=== PATIENT | male | born 1985 | race Caucasian/White ===

== ENCOUNTER 2019-06-29 13:47 | Emergency (ER) | payer MEDICAID ==
[2019-06-29] MEDS ORDERED: Bacitracin Oint 1 GM U/D Packet TOP ONE (14:15)
[2019-06-29] MEDS ORDERED: Lidocaine 1% 20 ML MDV INJECT ONE (14:15)
--- NOTE | 2019-06-29 14:16 | EDM.PDOC ---
ED HPI GENERAL MEDICAL PROBLEM - General Chief Complaint: Laceration Stated Complaint: LEFT HAND BETWEEN FINGERS LACERATION Time Seen by Provider: 06/29/19 14:16 Source of Information: Reports: Patient History Limitations: Reports: No Limitations - History of Present Illness INITIAL COMMENTS - FREE TEXT/NARRATIVE: pt was doing mechanical work. He ended up with a laceration between the index and the middle finger. The laceraion is 1 inch in length. Onset: Today, Sudden Duration: Hour(s): Location: Reports: Upper Extremity, Left Associated Symptoms: Reports: No Other Symptoms Left Hand Pain Score (Numeric/FACES): 10 - Related Data Allergies Allergy/AdvReac Type Severity Reaction Status Date / Time No Known Allergies Allergy Verified 06/29/19 14:06 Home Meds: Home Meds Gabapentin [Neurontin] 400 mg PO DAILY 06/29/19 [History] Lisdexamfetamine [Vyvanse] 20 mg PO DAILY 06/29/19 [History] Past Medical History - Past Health History Medical/Surgical History: Denies Medical/Surgical History Musculoskeletal History: Reports: Fracture, Other (See Below) Other Musculoskeletal History: has carpal tunnel left hand Psychiatric History: Reports: Anxiety, Depression - Past Surgical History Head Surgeries/Procedures: Reports: None Musculoskeletal Surgical History: Reports: None Dermatological Surgical History: Reports: None Social & Family History - Tobacco Use Smoking Status *Q: Current Every Day Smoker Years of Tobacco use: 20 Packs/Tins Daily: 1 Used Tobacco, but Quit: No Second Hand Smoke Exposure: Yes - Caffeine Use Caffeine Use: Reports: Energy Drinks - Recreational Drug Use Recreational Drug Use: Yes Drug Use in Last 12 Months: Yes Recreational Drug Type: Reports: Marijuana/Hashish Recreational Drug Use Frequency: Rarely ED ROS GENERAL - Review of Systems Review Of Systems: See Below Constitutional: Reports: No Symptoms HEENT: Reports: No Symptoms Respiratory: Reports: No Symptoms Cardiovascular: Reports: No Symptoms Endocrine: Reports: No Symptoms GI/Abdominal: Reports: No Symptoms Musculoskeletal: Reports: Other (pt has a laceration on the left between theindex and the middle finger. ) Skin: Reports: No Symptoms Neurological: Reports: No Symptoms ED EXAM, SKIN/RASH Exam: See Below Text/Narrative:: pt has a laceration between the index and the middle finger This is 1 inch in length. Exam Limited By: No Limitations General Appearance: Alert, Anxious Extremities: Other (left pt has a 1 inch laceration between the middle and the index finger The wound was scrubbed well and infiltrated with lidocaine. The pt had normal sensatiopn and motion of the finger. The wound was explored and he did not have tendon involv ment. The wound was closed with 5-0 chromic and 5-0 prolene. It was dressed with bacatracin,) Course - Vital Signs Last Recorded V/S: Last Vital Signs Temp 36.3 C 06/29/19 14:08 Pulse 65 06/29/19 14:08 Resp 16 06/29/19 14:08 BP 143/68 H 06/29/19 14:08 Pulse Ox 97 06/29/19 14:08 - Orders/Labs/Meds Meds: Medications Discontinued Medications Generic Name Dose Route Start Last Admin Trade Name Freq PRN Reason Stop Dose Admin Bacitracin 1 dose 06/29/19 14:15 06/29/19 14:31 Bacitracin Oint 1 Gm TOP 06/29/19 14:16 1 dose ONETIME ONE Administration Diphtheria/Tetanus/Acell Pertussis 0.5 ml 06/29/19 14:23 06/29/19 14:30 Adacel IM 06/29/19 14:24 0.5 ml .ONCE ONE Administration Lidocaine HCl 20 ml 06/29/19 14:15 06/29/19 14:31 Xylocaine 1% INJECT 06/29/19 14:16 20 ml ONETIME ONE Administration Oxycodone/Acetaminophen 1 tab 06/29/19 14:22 06/29/19 14:30 Percocet 325-5 Mg PO 06/29/19 14:23 1 tab ONETIME ONE Administration Departure - Departure Time of Disposition: 15:43 Disposition: Home, Self-Care 01 Condition: Fair Clinical Impression: Laceration - Discharge Information Instructions: Laceration Care, Adult, [id number] Referrals: Juve Yoo MD [Primary Care Provider] - Forms: ED Department Discharge Care Plan Goals: keep dry, no further ointments keep covered and clean, motrin 600mg q6h prn for pain, sr in 7-8 days,. Be sure to not spread the fingers wide apart. Sepsis Event Note - Evaluation Sepsis Screening Result: No Definite Risk - Focused Exam Date Exam was Performed: 07/02/19 Time Exam was Performed: 18:58
[2019-06-29] MEDS ORDERED: Acetaminophen/oxyCODONE 325-5 MG Tab PO ONE (14:22)
[2019-06-29] MEDS ORDERED: Diphtheria,Pertussis(Acell),Tetanus Vaccine 0.5 ML SDV IM ONE (14:23)
== END 2019-06-29 16:22 | disposition home or self-care (01) ==
LOC: JP.ED 13:47
DX: S61.211A Laceration without foreign body of left index finger without damage to nail, initial encounter (principal); S61.213A Laceration without foreign body of left middle finger without damage to nail, initial encounter; F17.210 Nicotine dependence, cigarettes, uncomplicated; Z23 Encounter for immunization; Z79.899 Other long term (current) drug therapy; W26.9XXA Contact with unspecified sharp object(s), initial encounter
CPT/HCPCS: 12001; 90471; 90715; 99283; A9270; J2001

== ENCOUNTER 2022-05-08 21:20 | Emergency (ER) | payer MEDICAID ==
[2022-05-08 22:15] LABS: ESTIMATED GFR 98 mL/min (>60)
[2022-05-08 22:20] LABS: CORONAVIRUS COVID-19 NAA NEGATIVE (NEGATIVE)
== END 2022-05-08 22:44 | disposition home or self-care (01) ==
LOC: JP.ED 21:20
DX: J20.8 Acute bronchitis due to other specified organisms (principal); B96.89 Other specified bacterial agents as the cause of diseases classified elsewhere; J03.90 Acute tonsillitis, unspecified; Z79.899 Other long term (current) drug therapy; Z20.822 Contact with and (suspected) exposure to COVID-19
CPT/HCPCS: 0241U; 36415; 71046; 80053; 85025; 86140; 99283

== ENCOUNTER 2023-02-07 07:41 | Emergency (ER) | payer MEDICAID ==
[2023-02-07] MEDS ORDERED: Ketorolac 30 MG/ML SDV IVPUSH ONE (07:51)
[2023-02-07] MEDS ORDERED: Sodium Chloride 0.9% 1,000 ML IV STA (07:51)
[2023-02-07] MEDS ORDERED: Sodium Chloride 0.9% 10 ML Syringe FLUSH PRN (07:51)
[2023-02-07] MEDS ORDERED: Ondansetron 4 MG/2 ML SDV IVPUSH ONE (07:54)
[2023-02-07 07:57] LABS: BASOPHILS PERCENT AUTO 0.8 % (0.1-1.3); EOSINOPHILS ABSOLUTE AUTO 0.08 K/uL (0.00-0.40); EOSINOPHILS PERCENT AUTO 0.6 % (0.0-5.4); HEMATOCRIT 43.4 % (38.4-49.7); IMMATURE GRAN ABSOLUTE AUTO 0.04 K/uL (0.00-0.23); IMMATURE GRAN PERCENT AUTO 0.3 % (0.0-0.7); LYMPHOCYTES ABSOLUTE AUTO 1.55 K/uL (0.8-3.3); LYMPHOCYTES PERCENT AUTO 12.4 % (11.4-47.7); MEAN CORPUSCULAR HEMOGLOBIN 30.3 pg (31.6-35.5); MEAN CORPUSCULAR HGB CONC 34.6 g/dL (31.6-35.5); MEAN CORPUSCULAR VOLUME 87.7 fL (81.4-99.0); MONOCYTES ABSOLUTE AUTO 0.58 K/uL (0.20-0.90); MONOCYTES PERCENT AUTO 4.6 % (3.3-12.6); NEUTROPHILS ABSOLUTE AUTO 10.16 K/uL (1.0-7.6); NEUTROPHILS PERCENT AUTO 81.3 % (40.0-78.1); PLATELET COUNT,PLT 380 K/uL (130-375); RED BLOOD CELL COUNT 4.95 M/uL (4.14-5.76); WHITE BLOOD CELL COUNT,WBC 12.5 K/uL (3.2-11.0)
[2023-02-07 08:01] LABS: APPEARANCE,URINE SLIGHTLY CLOUDY (CLEAR); BILIRUBIN,URINE SMALL (NEGATIVE); COLOR,URINE YELLOW (YELLOW); GLUCOSE,URINE NEGATIVE (NEGATIVE); KETONES,URINE 15 mg/dL (NEGATIVE); LEUKOCYTE ESTERASE,URINE NEGATIVE (NEGATIVE); NITRITE,URINE NEGATIVE (NEGATIVE); OCCULT BLOOD,URINE MODERATE (NEGATIVE); PH,URINE 7.5 (5.0-8.0); PROTEIN,URINE 30 mg/dL (NEGATIVE)
[2023-02-07 08:08] LABS: AMORPHOUS SEDIMENT,URINE MODERATE; BACTERIA,URINE NOT SEEN; EPITHELIAL CELLS,URINE NOT SEEN; MUCUS,URINE MANY; WBC,URINE 0-5 (0-5)
[2023-02-07 08:12] LABS: ALANINE AMINOTRANSFERASE,ALT 19 U/L (12-78); ALBUMIN 3.6 g/dL (3.4-5.0); ALKALINE PHOSPHATASE 78 U/L (46-116); ANION GAP 8.8 mmol/L (5.0-14.0); ASPARTATE AMNIOTRANSFERASE,AST 15 U/L (15-37); BILIRUBIN TOTAL 0.5 mg/dL (0.2-1.0); BLOOD UREA NITROGEN,BUN 14 mg/dL (7-18); CALCIUM 9.1 mg/dL (8.5-10.1); CARBON DIOXIDE,CO2 28 mmol/L (21-32); CHLORIDE,CL 103 mmol/L (100-108); CREATININE 1.4 mg/dL (0.8-1.3); EST CRCL DRUG DOSING (CG) 65.58 mL/min; ESTIMATED GFR 65 mL/min (>60); GLUCOSE RANDOM 108 mg/dL (74-106); POTASSIUM,K 3.8 mmol/L (3.6-5.2); PROTEIN TOTAL,TP 7.2 g/dL (6.4-8.2); SODIUM,NA 140 mmol/L (140-148)
[2023-02-07] MEDS ORDERED: HYDROmorphone 1 MG/ML Syringe IVPUSH ONE (08:17)
== END 2023-02-07 10:37 | disposition home or self-care (01) ==
LOC: JP.ED 07:41
DX: N13.2 Hydronephrosis with renal and ureteral calculous obstruction (principal); Z86.16 Personal history of COVID-19; Z72.0 Tobacco use
CPT/HCPCS: 36415; 74176; 80053; 81001; 83605; 85025; 96361; 96374; 96375; 99284; J1885; J2405; J7030

== ENCOUNTER 2024-07-09 15:03 | Emergency (ER) | payer MEDICAID | END 2024-07-09 15:48 | disposition left against medical advice (07) | LOC: JP.ED 15:03 | DX: Z53.21 Procedure and treatment not carried out due to patient leaving prior to being seen by health care provider (principal) ==